=== PATIENT | male | born 1955 | race Caucasian/White ===

== ENCOUNTER 2023-08-17 13:40 | Emergency (ER) | payer OTHER ==
[~2023-08-17] VITALS: Ht 167.6 cm; Wt 121.8 kg
[2023-08-17 14:13] LABS: VENOUS BASE EXCESS 3.5 (-2.0-2.0); VENOUS HCO3 31.8 MMOL/L (23.0-27.0); VENOUS O2 SATURATION 63.8 % (60.0-80.0); VENOUS PARTIAL PRESSURE CO2 62.2 mmHg (38.0-50.0); VENOUS PARTIAL PRESSURE O2 32.9 mmHg (30.0-50.0); VENOUS PH 7.327 UNITS (7.330-7.430); VENOUS STANDARD HCO3 26.5 MMOL/L; VENOUS TOTAL CO2 33.7 MMOL/L (24.0-28.0)
[2023-08-17 14:24] LABS: BASO % 0.3 % (0.0-1.0); HEMATOCRIT 54.8 % (42.0-52.0); LYMPH # 2.1 10^3/uL (1.5-5.0); LYMPH % 18.5 % (24.0-44.0); MEAN CORPUSCULAR HEMOGLOBIN 31.3 pg (27.0-33.0); MEAN CORPUSCULAR HGB CONC 33.8 g/dl (32.0-36.5); MEAN CORPUSCULAR VOLUME 92.6 fl (80.0-96.0); MONO # 0.5 10^3/uL (0.0-0.8); MONO % 4.9 % (2.0-8.0); NEUTROPHILS # 8.4 10^3/uL (1.5-8.5); NEUTROPHILS % 75.8 % (36.0-66.0); PLATELET COUNT, AUTOMATED 255 10^3/uL (150-450); RED BLOOD COUNT 5.92 10^6/uL (4.30-6.10); WHITE BLOOD COUNT 11.1 10^3/uL (4.0-10.0)
[2023-08-17 14:25] LABS: HEMOGLOBIN 18.5 g/dl (13.5-17.5)
[2023-08-17] MEDS ORDERED: ISOVUE-370 76% 100ML VIAL As Ordered ONE (14:33)
[2023-08-17 14:39] LABS: ALBUMIN 3.4 G/DL (3.2-5.2); ALKALINE PHOSPHATASE 86 U/L (46-116); ALT/SGPT 32 U/L (7.0-40); AST/SGOT 11 U/L (<34); BILIRUBIN,DIRECT 0.1 MG/DL (<0.4); BILIRUBIN,TOTAL 0.4 MG/DL (0.3-1.2); BLOOD UREA NITROGEN 17 MG/DL (9-23); CALCIUM LEVEL 8.5 MG/DL (8.3-10.6); CARBON DIOXIDE LEVEL 33 MMOL/L (20-31); CHLORIDE LEVEL 101 MMOL/L (98-107); CK-MB VALUE MASS 1.4 NG/ML (<3.6); CREATININE FOR GFR 0.88 MG/DL (0.70-1.30); GLOMERULAR FILTRATION RATE > 60.0 (>49); GLUCOSE, FASTING 151 MG/DL (74-106); SODIUM LEVEL 139 MMOL/L (136-145); TOTAL PROTEIN 6.7 G/DL (5.7-8.2)
[2023-08-17 14:42] LABS: CPK CREATINE PHOSPHOKINASE 65 U/L (46-171); MB/CK RELATIVE INDEX 2.15 (< OR =4)
[2023-08-17 14:52] LABS: RSV AMPLIFICATION NEGATIVE (NEGATIVE)
[2023-08-17 15:44] LABS: MB/CK RELATIVE INDEX 1.78 (< OR =4)
[2023-08-17] MEDS: KETOROLAC 30 MG/ML 1ML VIAL IV ONE (17:59)
[2023-08-17] MEDS: NORCO, ANEXSIA 5/325MG TABLET (HYDROcodone/ACETAMINOPHEN) PO ONE (18:38)
[2023-08-17] MEDS ORDERED: PRED10TA2 PO (19:04)
[2023-08-17] MEDS ORDERED: KETO10TAB PO (19:04)
[2023-08-17] MEDS: KETOROLAC TROMETHAMINE 10 MG TAB PO PRN (19:17)
[2023-08-17] MEDS: NORCO 5/325MG TABLET (HOME DOSE PACK) PO ONE (19:19)
[2023-08-17 19:25] VITALS: BP 131/74; TEMP 98.8; O2SAT 96
== END 2023-08-17 19:46 | disposition home or self-care (01) ==
LOC: M ED 13:40 → EDBD 13:40 → M ED 19:46
DX: R09.1 Pleurisy (principal); E11.9 Type 2 diabetes mellitus without complications; J44.9 Chronic obstructive pulmonary disease, unspecified; F17.200 Nicotine dependence, unspecified, uncomplicated
CPT/HCPCS: 71045; 71275; 80047; 80048; 80076; 82550; 82553; 82803; 84484; 85025; 87040; 87631; 93005; 93041; 94760; 96374; 99285; J1885; Q9967

== ENCOUNTER 2024-03-13 12:49 | Inpatient (IN) | payer OTHER ==
[~2024-03-13] VITALS: Ht 167.6 cm; Wt 124.7 kg
[~2024-03-13 12:49] MED LIST: KETO10TAB PO; PRED10TA2 PO
[2024-03-13 13:20] LABS: BASO % 0.3 % (0.0-1.0); EOS # 0.2 10^3/uL (0.0-0.5); EOS % 1.1 % (0.0-3.0); HEMATOCRIT 53.8 % (42.0-52.0); LYMPH # 1.2 10^3/uL (1.5-5.0); LYMPH % 9.2 % (24.0-44.0); MEAN CORPUSCULAR HEMOGLOBIN 31.6 pg (27.0-33.0); MEAN CORPUSCULAR HGB CONC 32.9 g/dl (32.0-36.5); MEAN CORPUSCULAR VOLUME 96.1 fl (80.0-96.0); MONO # 0.6 10^3/uL (0.0-0.8); MONO % 4.9 % (2.0-8.0); NEUTROPHILS # 11.1 10^3/uL (1.5-8.5); PLATELET COUNT, AUTOMATED 218 10^3/uL (150-450); WHITE BLOOD COUNT 13.2 10^3/uL (4.0-10.0)
[2024-03-13 13:23] LABS: HEMOGLOBIN 17.7 g/dl (13.5-17.5)
[2024-03-13 13:49] LABS: ALBUMIN 3.2 G/DL (3.2-5.2); ALKALINE PHOSPHATASE 106 U/L (46-116); ALT/SGPT 70 U/L (7.0-40); AST/SGOT 24 U/L (<34); BILIRUBIN,DIRECT 0.3 MG/DL (<0.4); BILIRUBIN,TOTAL 0.9 MG/DL (0.3-1.2); BLOOD UREA NITROGEN 24 MG/DL (9-23); CALCIUM LEVEL 9.4 MG/DL (8.3-10.6); CARBON DIOXIDE LEVEL 32 MMOL/L (20-31); CHLORIDE LEVEL 104 MMOL/L (98-107); GLOMERULAR FILTRATION RATE > 60.0 (>49); GLUCOSE, FASTING 252 MG/DL (74-106); POTASSIUM SERUM 4.4 MMOL/L (3.5-5.1); SODIUM LEVEL 141 MMOL/L (136-145); TOTAL PROTEIN 6.4 G/DL (5.7-8.2)
[2024-03-13] MEDS: dexAMETHasone 20MG/5ML VIAL IV ONE (13:52)
[2024-03-13] MEDS: IPRATROPIUM 0.5MG/ALBUTEROL 2.5MG INH SOL UD 3ML (DUONEB) NEB SCH ×2 (14:00→22:48)
[2024-03-13 14:14] LABS: ABG BASE EXCESS 1.2 (-2.0-2.0); ABG HCO3 26.2 MMOL/L (22.0-26.0); ABG O2 SATURATION 97.4 % (95.0-99.0); ABG PARTIAL PRESSURE CO2 42.8 mmHg (35.0-45.0); ABG PARTIAL PRESSURE O2 88.7 mmHg (75.0-100.0); ABG STANDARD HCO3 25.5 MMOL/L. (22.0-26.0); ABG TOTAL CO2 27.5 MMOL/L (23.0-31.0); ABG pH (ARTERIAL) 7.405 UNITS (7.350-7.450)
[2024-03-13] MEDS ORDERED: PRED10TA2 PO (15:19)
[2024-03-13] MEDS ORDERED: SPIR1CAP INH (15:19)
[2024-03-13] MEDS ORDERED: CETI-24 PO (15:19)
[2024-03-13] MEDS ORDERED: LOSA50TA5 PO (15:19)
[2024-03-13] MEDS ORDERED: METF500T13 PO (15:19)
[2024-03-13] MEDS ORDERED: D-101000 PO (15:19)
[2024-03-13] MEDS ORDERED: VENTAER INH (15:19)
[2024-03-13] MEDS ORDERED: ROSU40TA81 PO (15:19)
[2024-03-13] MEDS ORDERED: HOME MED LIST COMPLETE! XX SCH (15:20)
[2024-03-13] MEDS ORDERED: ISOVUE-370 76% 100ML VIAL As Ordered ONE (17:24)
[2024-03-13 19:43] LABS: PROCALCITONIN 0.13 ng/ml
[2024-03-13] MEDS ORDERED: MOM 30ML SUSPENSION UDC PO PRN (20:40)
[2024-03-13] MEDS ORDERED: ALBUTEROL SULFATE 2.5MG/0.5ML INH NEB SOLN NEB PRN (20:40)
[2024-03-13] MEDS ORDERED: ALBUTEROL 90 MCG/ACT 8GM HFA INHALER INH PRN (20:50)
[2024-03-13] MEDS ORDERED: GLUCOSE 4 GM CHEW PO PRN (20:50)
[2024-03-13] MEDS ORDERED: DEXTROSE 50% 50ML SYRINGE IV PRN (20:50)
[2024-03-13] MEDS ORDERED: GLUCAGON INJ 1MG VIAL SC PRN (20:50)
[2024-03-13 22:02] LABS: CK-MB VALUE MASS 3.5 NG/ML (<3.6)
[2024-03-13] MEDS: FUROSEMIDE 40MG/4ML VIAL IV ONE (22:06)
[2024-03-13] MEDS: methylPREDNISolone 125MG 2ML VIAL IV SCH (22:06)
[2024-03-13 22:08] LABS: MB/CK RELATIVE INDEX 2.46 (< OR =4)
[2024-03-13] MEDS: INSULIN LISPRO (NovoLOG) PER UNIT SC SCH (22:08)
[2024-03-13 22:50] VITALS: BP 163/115; TEMP 97.7; O2SAT 98
[2024-03-13 23:30] VITALS: BP 148/100
[2024-03-13] MEDS: ENOXAPARIN 40MG/0.4ML SYRINGE (J1650 PER 10MG) SC SCH (23:48)
[2024-03-14] VITALS (32 sets, daily range): BP systolic 135–143; BP diastolic 70–91; TEMP 97.3–97.7; O2SAT 85–94
[2024-03-14 06:49] LABS: HEMATOCRIT 52.5 % (42.0-52.0); MEAN CORPUSCULAR HEMOGLOBIN 30.2 pg (27.0-33.0); MEAN CORPUSCULAR HGB CONC 32.4 g/dl (32.0-36.5); MEAN CORPUSCULAR VOLUME 93.4 fl (80.0-96.0); PLATELET COUNT, AUTOMATED 219 10^3/uL (150-450); RED BLOOD COUNT 5.62 10^6/uL (4.30-6.10); WHITE BLOOD COUNT 13.8 10^3/uL (4.0-10.0)
[2024-03-14 07:10] LABS: ALBUMIN 3.2 G/DL (3.2-5.2); ALKALINE PHOSPHATASE 95 U/L (46-116); ALT/SGPT 65 U/L (7.0-40); AST/SGOT 17 U/L (<34); BILIRUBIN,TOTAL 0.9 MG/DL (0.3-1.2); BLOOD UREA NITROGEN 25 MG/DL (9-23); CALCIUM LEVEL 9.3 MG/DL (8.3-10.6); CARBON DIOXIDE LEVEL 32 MMOL/L (20-31); CHLORIDE LEVEL 101 MMOL/L (98-107); CREATININE FOR GFR 0.76 MG/DL (0.70-1.30); GLOMERULAR FILTRATION RATE > 60.0 (>49); GLUCOSE, FASTING 241 MG/DL (74-106); POTASSIUM SERUM 3.9 MMOL/L (3.5-5.1); SODIUM LEVEL 140 MMOL/L (136-145); TOTAL PROTEIN 6.5 G/DL (5.7-8.2)
[2024-03-14] MEDS: TIOTROPIUM INHALER/CAPSULE (SPIRIVA) INH SCH (07:22)
[2024-03-14] MEDS: INSULIN LISPRO (NovoLOG) PER UNIT SC SCH (07:46)
[2024-03-14] MEDS: hydroCHLOROthiazide 12.5 MG CAPSULE PO SCH (07:47)
[2024-03-14] MEDS: ROSUVASTATIN 10 MG TAB (CRESTOR) PO SCH (07:47)
[2024-03-14] MEDS: LOSARTAN 50MG TABLET PO SCH (07:47)
[2024-03-14] MEDS: CETIRIZINE (ZyrTEC) 10 MG TAB PO SCH (07:47)
[2024-03-14] MEDS ORDERED: NICOTINE POLACRILEX 2 MG GUM PO PRN (10:05)
[2024-03-14] MEDS: NICOTINE 21MG/24HR 1 EA TRANSDERMAL TD SCH (10:38)
[2024-03-14] MEDS: MIRALAX *UNIT DOSE* 17GM PACKET PO SCH (13:53)
[2024-03-14] MEDS: ALBUTEROL SULFATE 2.5MG/0.5ML INH NEB SOLN NEB PRN (22:18)
[2024-03-15] VITALS (37 sets, daily range): BP systolic 128–140; BP diastolic 82–91; TEMP 97.3–97.9; O2SAT 86–95
[2024-03-15] MEDS: ACETAMINOPHEN 325 MG TAB PO PRN (00:28)
[2024-03-15 02:38] LABS: ABG BASE EXCESS 5.7 (-2.0-2.0); ABG HCO3 30.2 MMOL/L (22.0-26.0); ABG O2 SATURATION 96.8 % (95.0-99.0); ABG PARTIAL PRESSURE CO2 42.7 mmHg (35.0-45.0); ABG PARTIAL PRESSURE O2 81.2 mmHg (75.0-100.0); ABG STANDARD HCO3 29.6 MMOL/L. (22.0-26.0); ABG TOTAL CO2 31.5 MMOL/L (23.0-31.0); ABG pH (ARTERIAL) 7.467 UNITS (7.350-7.450)
[2024-03-15] MEDS ORDERED: MAGNESIUM SULFATE IN WATER 2 GM in IV 1 EA IV STA (03:39)
[2024-03-15] MEDS: MAG SULF 1GM/100ML (MAG RUN) IV SCH (04:04)
[2024-03-15] MEDS: IPRATROPIUM 0.5MG/ALBUTEROL 2.5MG INH SOL UD 3ML (DUONEB) NEB SCH (04:29)
[2024-03-15 05:36] LABS: HEMATOCRIT 47.6 % (42.0-52.0); HEMOGLOBIN 15.8 g/dl (13.5-17.5); MEAN CORPUSCULAR HEMOGLOBIN 31.1 pg (27.0-33.0); MEAN CORPUSCULAR HGB CONC 33.2 g/dl (32.0-36.5); MEAN CORPUSCULAR VOLUME 93.7 fl (80.0-96.0); PLATELET COUNT, AUTOMATED 201 10^3/uL (150-450); RED BLOOD COUNT 5.08 10^6/uL (4.30-6.10); WHITE BLOOD COUNT 18.2 10^3/uL (4.0-10.0)
[2024-03-15] MEDS: methylPREDNISolone 125MG 2ML VIAL IV SCH (05:55)
[2024-03-15 06:05] LABS: BLOOD UREA NITROGEN 31 MG/DL (9-23); CALCIUM LEVEL 8.8 MG/DL (8.3-10.6); CARBON DIOXIDE LEVEL 32 MMOL/L (20-31); CHLORIDE LEVEL 104 MMOL/L (98-107); CREATININE FOR GFR 0.74 MG/DL (0.70-1.30); GLOMERULAR FILTRATION RATE > 60.0 (>49); GLUCOSE, FASTING 268 MG/DL (74-106); POTASSIUM SERUM 3.8 MMOL/L (3.5-5.1); SODIUM LEVEL 141 MMOL/L (136-145)
[2024-03-15] MEDS: FUROSEMIDE 40MG/4ML VIAL IV SCH (07:56)
[2024-03-15] MEDS: BUDESONIDE 0.5 MG/2 ML INHALATION SUSPENSION NEB SCH (08:05)
[2024-03-16] VITALS (14 sets, daily range): BP systolic 126–138; BP diastolic 75–90; TEMP 97.5–97.9; O2SAT 88–93
[2024-03-16 03:45] LABS: CK-MB VALUE MASS 2.9 NG/ML (<3.6)
[2024-03-16 04:20] LABS: MB/CK RELATIVE INDEX 1.1 (< OR =4)
[2024-03-16] MEDS ORDERED: HYDROCORTISONE 1% CREAM 30GM TOP PRN (05:10)
[2024-03-16 05:19] LABS: HEMATOCRIT 46.6 % (42.0-52.0); HEMOGLOBIN 15.9 g/dl (13.5-17.5); MEAN CORPUSCULAR HEMOGLOBIN 31.4 pg (27.0-33.0); MEAN CORPUSCULAR HGB CONC 34.1 g/dl (32.0-36.5); MEAN CORPUSCULAR VOLUME 92.1 fl (80.0-96.0); PLATELET COUNT, AUTOMATED 198 10^3/uL (150-450); RED BLOOD COUNT 5.06 10^6/uL (4.30-6.10); WHITE BLOOD COUNT 15.9 10^3/uL (4.0-10.0)
[2024-03-16] MEDS: MAALOX 30 ML SUSP *UDC PO ONE (05:20)
[2024-03-16 05:48] LABS: BLOOD UREA NITROGEN 39 MG/DL (9-23); CARBON DIOXIDE LEVEL 31 MMOL/L (20-31); CHLORIDE LEVEL 102 MMOL/L (98-107); CREATININE FOR GFR 0.79 MG/DL (0.70-1.30); GLOMERULAR FILTRATION RATE > 60.0 (>49); GLUCOSE, FASTING 281 MG/DL (74-106); POTASSIUM SERUM 3.5 MMOL/L (3.5-5.1); SODIUM LEVEL 140 MMOL/L (136-145)
[2024-03-16] MEDS: NYSTATIN 100,000 UNITS/GM TOPICAL PWD 15GM TOP PRN (08:23)
[2024-03-17] VITALS: BP 113/70; TEMP 97.5; O2SAT 93
[2024-03-17] MEDS: FUROSEMIDE 40MG/4ML VIAL IV SCH (00:08)
[2024-03-17 03:21] VITALS: BP 143/84; TEMP 97.7; O2SAT 94
[2024-03-17] MEDS: methylPREDNISolone 125MG 2ML VIAL IV SCH ×2 (05:23→17:25)
[2024-03-17 06:00] LABS: HEMATOCRIT 47.2 % (42.0-52.0); HEMOGLOBIN 15.7 g/dl (13.5-17.5); MEAN CORPUSCULAR HGB CONC 33.3 g/dl (32.0-36.5); MEAN CORPUSCULAR VOLUME 93.1 fl (80.0-96.0); PLATELET COUNT, AUTOMATED 191 10^3/uL (150-450); RED BLOOD COUNT 5.07 10^6/uL (4.30-6.10); WHITE BLOOD COUNT 12.7 10^3/uL (4.0-10.0)
[2024-03-17 06:23] LABS: BLOOD UREA NITROGEN 39 MG/DL (9-23); CALCIUM LEVEL 8.5 MG/DL (8.3-10.6); CARBON DIOXIDE LEVEL 35 MMOL/L (20-31); CHLORIDE LEVEL 101 MMOL/L (98-107); CREATININE FOR GFR 0.84 MG/DL (0.70-1.30); GLOMERULAR FILTRATION RATE > 60.0 (>49); GLUCOSE, FASTING 310 MG/DL (74-106); POTASSIUM SERUM 3.3 MMOL/L (3.5-5.1); SODIUM LEVEL 141 MMOL/L (136-145)
[2024-03-17] MEDS: PANTOPRAZOLE 40MG TAB (PROTONIX) PO SCH (08:23)
[2024-03-17] MEDS: SENOKOT S TAB PO SCH (08:24)
[2024-03-17] MEDS: POTASSIUM CHLORIDE 10MEQ SR TABLET PO SCH (08:24)
[2024-03-17] MEDS: LEVEMIR (INSULIN DETEMIR) 1 UNITS/0.01ML SC SCH (08:25)
[2024-03-17 10:20] VITALS: O2SAT 92
[2024-03-17 12:00] VITALS: BP 142/87; TEMP 97.9; O2SAT 90
[2024-03-17 21:30] VITALS: BP 144/86; TEMP 97.8; O2SAT 88; O2SAT 93
[2024-03-18] VITALS (12 sets, daily range): BP systolic 121–146; BP diastolic 66–89; TEMP 97–97.5; O2SAT 86–98
[2024-03-18 05:39] LABS: HEMATOCRIT 47.9 % (42.0-52.0); MEAN CORPUSCULAR HEMOGLOBIN 31.1 pg (27.0-33.0); MEAN CORPUSCULAR HGB CONC 33.4 g/dl (32.0-36.5); PLATELET COUNT, AUTOMATED 163 10^3/uL (150-450); RED BLOOD COUNT 5.15 10^6/uL (4.30-6.10); WHITE BLOOD COUNT 11.6 10^3/uL (4.0-10.0)
[2024-03-18 06:05] LABS: BLOOD UREA NITROGEN 40 MG/DL (9-23); CALCIUM LEVEL 8.6 MG/DL (8.3-10.6); CARBON DIOXIDE LEVEL 36 MMOL/L (20-31); CHLORIDE LEVEL 100 MMOL/L (98-107); CREATININE FOR GFR 0.84 MG/DL (0.70-1.30); GLOMERULAR FILTRATION RATE > 60.0 (>49); GLUCOSE, FASTING 233 MG/DL (74-106); POTASSIUM SERUM 3.3 MMOL/L (3.5-5.1); SODIUM LEVEL 140 MMOL/L (136-145)
[2024-03-18] MEDS: SYMBICORT 160/4.5MCG INHALER 6GM INH SCH (07:11)
[2024-03-18] MEDS: AZITHROMYCIN 250MG TABLET PO SCH (08:27)
[2024-03-19 04:00] VITALS: BP 134/88; TEMP 97; O2SAT 91
[2024-03-19 05:50] LABS: HEMATOCRIT 50.8 % (42.0-52.0); HEMOGLOBIN 16.6 g/dl (13.5-17.5); MEAN CORPUSCULAR HEMOGLOBIN 30.5 pg (27.0-33.0); MEAN CORPUSCULAR HGB CONC 32.7 g/dl (32.0-36.5); MEAN CORPUSCULAR VOLUME 93.2 fl (80.0-96.0); PLATELET COUNT, AUTOMATED 164 10^3/uL (150-450); RED BLOOD COUNT 5.45 10^6/uL (4.30-6.10); WHITE BLOOD COUNT 12.3 10^3/uL (4.0-10.0)
[2024-03-19 06:21] LABS: BLOOD UREA NITROGEN 39 MG/DL (9-23); CALCIUM LEVEL 8.8 MG/DL (8.3-10.6); CARBON DIOXIDE LEVEL 36 MMOL/L (20-31); CHLORIDE LEVEL 101 MMOL/L (98-107); GLOMERULAR FILTRATION RATE > 60.0 (>49); GLUCOSE, FASTING 254 MG/DL (74-106); POTASSIUM SERUM 3.8 MMOL/L (3.5-5.1); SODIUM LEVEL 143 MMOL/L (136-145)
[2024-03-19 07:08] VITALS: O2SAT 93
[2024-03-19 08:00] VITALS: BP 129/76; TEMP 97.3; O2SAT 90
[2024-03-19 12:00] VITALS: BP 124/74; TEMP 97.3; O2SAT 93
[2024-03-19] MEDS: methylPREDNISolone 40MG 1ML VIAL IV SCH (17:34)
[2024-03-19 20:23] VITALS: BP 122/84; TEMP 97.3; O2SAT 90
[2024-03-19 22:21] VITALS: O2SAT 91
[2024-03-20 04:48] VITALS: BP 125/85; TEMP 97.3; O2SAT 92
[2024-03-20 05:28] LABS: HEMOGLOBIN 16.6 g/dl (13.5-17.5); MEAN CORPUSCULAR HEMOGLOBIN 31.7 pg (27.0-33.0); MEAN CORPUSCULAR HGB CONC 33.9 g/dl (32.0-36.5); MEAN CORPUSCULAR VOLUME 93.5 fl (80.0-96.0); PLATELET COUNT, AUTOMATED 193 10^3/uL (150-450); RED BLOOD COUNT 5.24 10^6/uL (4.30-6.10); WHITE BLOOD COUNT 13.3 10^3/uL (4.0-10.0)
[2024-03-20 05:56] LABS: BLOOD UREA NITROGEN 41 MG/DL (9-23); CALCIUM LEVEL 9.1 MG/DL (8.3-10.6); CARBON DIOXIDE LEVEL 36 MMOL/L (20-31); CHLORIDE LEVEL 101 MMOL/L (98-107); CREATININE FOR GFR 0.84 MG/DL (0.70-1.30); GLOMERULAR FILTRATION RATE > 60.0 (>49); GLUCOSE, FASTING 163 MG/DL (74-106); POTASSIUM SERUM 3.8 MMOL/L (3.5-5.1); SODIUM LEVEL 142 MMOL/L (136-145)
[2024-03-20 12:00] VITALS: BP 127/78; TEMP 97.6; O2SAT 96
[2024-03-20] MEDS: MAGNESIUM OXIDE 400MG TAB (MAG-OX) PO SCH (13:15)
[2024-03-20 19:45] VITALS: BP 91/66; TEMP 97; O2SAT 96
[2024-03-20] MEDS: methocarbamoL 500 MG TAB PO PRN (21:22)
[2024-03-20 22:32] VITALS: O2SAT 90
[2024-03-20 23:36] VITALS: BP 124/73
[2024-03-21 04:57] VITALS: BP 128/76; TEMP 97.7; O2SAT 92
[2024-03-21 06:33] LABS: HEMATOCRIT 48.9 % (42.0-52.0); HEMOGLOBIN 15.9 g/dl (13.5-17.5); MEAN CORPUSCULAR HEMOGLOBIN 30.8 pg (27.0-33.0); MEAN CORPUSCULAR HGB CONC 32.5 g/dl (32.0-36.5); MEAN CORPUSCULAR VOLUME 94.6 fl (80.0-96.0); PLATELET COUNT, AUTOMATED 186 10^3/uL (150-450); RED BLOOD COUNT 5.17 10^6/uL (4.30-6.10); WHITE BLOOD COUNT 12.6 10^3/uL (4.0-10.0)
[2024-03-21 07:07] LABS: ALBUMIN 3.1 G/DL (3.2-5.2); ALKALINE PHOSPHATASE 78 U/L (46-116); ALT/SGPT 91 U/L (7.0-40); AST/SGOT 24 U/L (<34); BILIRUBIN,DIRECT 0.5 MG/DL (<0.4); BILIRUBIN,TOTAL 1.3 MG/DL (0.3-1.2); BLOOD UREA NITROGEN 43 MG/DL (9-23); CALCIUM LEVEL 8.9 MG/DL (8.3-10.6); CARBON DIOXIDE LEVEL 35 MMOL/L (20-31); CHLORIDE LEVEL 101 MMOL/L (98-107); GLOMERULAR FILTRATION RATE > 60.0 (>49); GLUCOSE, FASTING 178 MG/DL (74-106); POTASSIUM SERUM 3.9 MMOL/L (3.5-5.1); SODIUM LEVEL 140 MMOL/L (136-145); TOTAL PROTEIN 5.8 G/DL (5.7-8.2)
[2024-03-21] MEDS: TORSEMIDE 20 MG TAB PO SCH (08:16)
[2024-03-21 12:00] VITALS: BP 129/78; TEMP 97; O2SAT 96
[2024-03-21 19:45] VITALS: BP 144/72; TEMP 97.2; O2SAT 90
[2024-03-22] VITALS (9 sets, daily range): BP systolic 109–123; BP diastolic 67–71; TEMP 97.2–97.3; O2SAT 86–97
[2024-03-22] MEDS: methylPREDNISolone 40MG 1ML VIAL IV SCH (05:40)
[2024-03-22] MEDS ORDERED: SENN-52 PO (08:01)
[2024-03-22] MEDS ORDERED: LOSA-528 PO (08:01)
[2024-03-22] MEDS ORDERED: TORS20TA2 PO (08:01)
[2024-03-22] MEDS ORDERED: PRED10TA2 PO (08:01)
[2024-03-22] MEDS ORDERED: POTA-136 PO (08:01)
[2024-03-22] MEDS ORDERED: PRED20TA PO (08:03)
[2024-03-22] MEDS ORDERED: IPRA0.00 INH (08:03)
[2024-03-22] MEDS ORDERED: METO25TA PO (08:03)
[2024-03-22] MEDS ORDERED: FLUT1BLS3 IH (11:22)
== END 2024-03-22 14:39 | disposition home health service (06) | DRG 291 ==
LOC: M ED 12:49 → EDBD 12:49 → M ED INP 20:37 → M MSPAV 22:43
PROVIDERS: ADMIT Student in an Organized Health Care Education/Training Program; ATTEND Internal Medicine Nephrology
PROC: B246ZZZ Ultrasonography of Right and Left Heart (ICD-10-PCS; principal; 2024-03-15)
DX: I11.0 Hypertensive heart disease with heart failure (principal); J96.01 Acute respiratory failure with hypoxia; I50.33 Acute on chronic diastolic (congestive) heart failure; Z68.41 Body mass index [BMI] 40.0-44.9, adult; J44.1 Chronic obstructive pulmonary disease with (acute) exacerbation; E11.65 Type 2 diabetes mellitus with hyperglycemia; E78.5 Hyperlipidemia, unspecified; F17.200 Nicotine dependence, unspecified, uncomplicated; J43.9 Emphysema, unspecified; E66.01 Morbid (severe) obesity due to excess calories; K76.0 Fatty (change of) liver, not elsewhere classified; I89.0 Lymphedema, not elsewhere classified; Z99.81 Dependence on supplemental oxygen; E87.6 Hypokalemia; G47.33 Obstructive sleep apnea (adult) (pediatric); Z66 Do not resuscitate; Z79.52 Long term (current) use of systemic steroids; Z79.899 Other long term (current) drug therapy

== ENCOUNTER → 2025-02-22 | Outpatient (CLI) | payer OTHER ==
[~2025-02-22] MED LIST changes: +CETI-24 PO; +D-101000 PO; +FLUT1BLS3 IH; +IPRA0.00 INH; +LOSA-528 PO; +LOSA50TA5 PO; +METF500T13 PO; +METO25TA PO; +POTA-136 PO; +PRED20TA PO; +ROSU40TA81 PO; +SENN-52 PO; +SPIR1CAP INH; +TORS20TA2 PO; +VENTAER INH
[2025-02-22 15:52] LABS: BASO # 0.1 10^3/uL (0.0-0.2); BASO % 0.8 % (0.0-1.0); EOS # 0.1 10^3/uL (0.0-0.5); EOS % 1.4 % (0.0-3.0); LYMPH # 1.9 10^3/uL (1.5-5.0); LYMPH % 26.1 % (24.0-44.0); MONO # 0.8 10^3/uL (0.0-0.8); MONO % 10.2 % (2.0-8.0); NEUTROPHILS # 4.5 10^3/uL (1.5-8.5); NEUTROPHILS % 61.2 % (36.0-66.0); PLATELET COUNT, AUTOMATED 230 10^3/uL (150-450)
[2025-02-22 15:54] LABS: ALT/SGPT 41 U/L (7.0-40); AST/SGOT 24 U/L (<34); CALCIUM LEVEL 9.6 MG/DL (8.3-10.6); CARBON DIOXIDE LEVEL 33 MMOL/L (20-31); CHLORIDE LEVEL 101 MMOL/L (98-107); CREATININE FOR GFR 0.82 MG/DL (0.70-1.30); GLOMERULAR FILTRATION RATE > 90.0 (>49); POTASSIUM SERUM 3.9 MMOL/L (3.5-5.1); SODIUM LEVEL 145 MMOL/L (136-145)
== END ==
LOC: M PLALAB 11:56
PROVIDERS: ATTEND Registered Nurse
DX: I50.32 Chronic diastolic (congestive) heart failure (principal)

== ENCOUNTER → 2025-03-24 | Outpatient (CLI) | payer OTHER | LOC: M RAD 14:22 | PROVIDERS: ATTEND Internal Medicine Pulmonary Disease | DX: Z87.891 Personal history of nicotine dependence (principal) ==

== ENCOUNTER → 2025-05-13 | Outpatient (CLI) | payer OTHER ==
[~2025-05-13] MED LIST changes: +ASPI81TA26 PO
[2025-05-13 13:20] LABS: PLATELET COUNT, AUTOMATED 232 10^3/uL (150-450)
[2025-05-13 13:41] LABS: INR 0.96
== END ==
LOC: M PLAIMG 10:31
PROVIDERS: ATTEND Internal Medicine Pulmonary Disease
DX: R91.1 Solitary pulmonary nodule (principal); Z79.01 Long term (current) use of anticoagulants